=== PATIENT | male | born 1990 | race Caucasian/White ===

== ENCOUNTER 2018-05-23 17:14 | Emergency (ER) | payer SELFPAY ==
[~2018-05-23] VITALS: Ht 175.3 cm; Wt 102.3 kg
[2018-05-23 17:45] VITALS: Ht 175.3 cm; Wt 102.3 kg
[2018-05-23] MEDS ORDERED: TESSALON PERLE100 MG PO (21:20)
[2018-05-23] MEDS ORDERED: AMOXICILLIN875 MG PO (21:20)
[2018-05-23 21:46] VITALS: BP 153/94
== END 2018-05-23 21:46 | disposition home or self-care (01) ==
LOC: D.ER 17:14
DX: J02.0 Streptococcal pharyngitis (principal); R09.89 Other specified symptoms and signs involving the circulatory and respiratory systems